=== PATIENT | female | born 1985 | race Caucasian/White ===

== ENCOUNTER 2019-12-07 17:31 | Emergency (ER) | payer OTHER ==
[~2019-12-07] VITALS: Ht 160 cm; Wt 59.0 kg
[2019-12-07 17:50] VITALS: BP 124/82
--- NOTE | 2019-12-07 18:49 | NUR ---
PATIENT LEFT WITHOUT BEING SEEN BY DR. WASSERMAN. NO FURTHER CARE PROVIDED FOR PATIENT.
== END 2019-12-07 18:49 | disposition left against medical advice (07) ==
LOC: MED 17:31
DX: F32.9 Major depressive disorder, single episode, unspecified (principal); Z53.21 Procedure and treatment not carried out due to patient leaving prior to being seen by health care provider